=== PATIENT | male | born 1970 | race Caucasian/White ===

== ENCOUNTER → 2019-01-14 | Outpatient (CLI) | payer SELFPAY ==
--- NOTE | 2019-01-14 16:57 | PCVCIMAG ---
APPROVED REPORT Study performed: 01/14/2019 15:02:17 Exam: Stress Echocardiogram Indication: Dyspnea, fam hx cad, hyperlipidemia Patient Location: Echo lab Stress Nurse: Peggy Chavira RN Status: routine Ht: 5 ft 7 in HR: 82 bpm BP: 130/82 mmHg Rhythm: NSR Procedure The patient underwent an Exercise Stress Test using the Kenny Protocol. Blood pressure, heart rate, and EKG were monitored. An Echocardiogram was performed by alternative energy technician in four stages in quad fashion. At peak stress, four selected images were obtained and placed side by side with resting images for comparison. Stress Test Details Stress Test: Exercise stress testing was performed using a Kenny protocol. HR Resting HR: 82 bpmMax Heart Rate (APMHR): 170 bpm Max HR Achieved: 190 bpmTarget HR (85% APMHR): 144 bpm % of APMHR: 111 Recovery HR: 93 bpm HR response to stress: Normal HR response to stress BP Resting BP: 130/82 mmHg Max BP: 168/78 mmHg Recovery BP: 120/76 mmHg BP response to stress: Normal blood pressure response to stress. ECG Resting ECG: Sinus Rhythm Stress ECG: Sinus Rhythm ST Change: Horizontal ST depression Maximum ST Deviation: 2 mm Arrhythmia: None Recovery ECG: Sinus Rhythm Recovery ST Change: Upsloping ST depression Recovery ST Deviation: 1 mm Recovery Arrhythmia: None Clinical Reason for Termination: Maximal effort, Dyspnea Stress Symptoms: Dyspnea Exercise duration: 12 min sec Highest Stage Achieved: Stage 4: 4.2 mph at 16% grade. Exercise capacity: 13.4 METs Overall Exercise Capacity for Age: Average Scale: Active Angina Score: None Stress ECG Conclusion ECG: I Abnormal exercise stress ECG consistent with stress-induced myocardial ischemia. schemic Ordaz Treadmill Score is 2.0 which is Moderate risk. Pre-Stress Echo The resting Echocardiogram showed normal left ventricular contractility with an estimated Ejection Fraction of about >55%. Normal wall motion in all segments on baseline images. Post-Stress Echo The stress Echocardiogram showed normal left ventricular contractility with an estimated Ejection Fraction of about 65%. Normal augmentation of wall motion in all segments on post stress images. Conclusion Clinical Response: Equivocal Exercise Capacity: Above Average Stress ECG Response: Ischemic Stress Echo Images: Non-ischemic The left ventricle is normal in size and wall thickness in both the rest and stress images. Ischemic electrocardiographic findings, consider false positive response. Suggest myocardial perfusion imaging. Other Information Study Quality: Adequate <Conclusion> The left ventricle is normal in size and wall thickness in both the rest and stress images. Ischemic electrocardiographic findings, consider false positive response. Suggest myocardial perfusion imaging.
== END | disposition home or self-care (01) ==
LOC: PCVCIMAG 14:55
PROVIDERS: ATTEND Family Medicine
DX: R06.09 Other forms of dyspnea (principal); R94.39 Abnormal result of other cardiovascular function study; E78.5 Hyperlipidemia, unspecified; Z82.49 Family history of ischemic heart disease and other diseases of the circulatory system
CPT/HCPCS: 93325; 93351

== ENCOUNTER → 2019-01-16 | Outpatient (CLI) | payer SELFPAY ==
--- NOTE | 2019-01-17 07:41 | PCVCIMAG ---
APPROVED REPORT Imaging Protocol: Rest Tc-99m/Stress Tc-99m 1 day Study performed: 01/16/2019 10:00:30 Indication: GALDAMEZ, Abn Stress Echo Patient Location: Out-Patient Stress Nurse: Zenaida Meraz RN, SHARMILA William Tech:Rosendo RamirezMALCOLMB Ht: 5 ft 8 in Wt: 155 lbs BSA: 1.83 m2 HR: 73 bpm BP: 140/72 mmHg BMI: 23.5 Rhythm: Sinus Rhythm Medical History Medical History: Age, Hyperlipidemia, Family Hx of CAD, Smoker Medications: Crestor, Sulfasalazine, Meloxicam, Zyrtec Allergies: No known drug allergies Pretest Chest Pain Characteristics: No chest pain Exercise History: Physically active Resting Data Rest SPECT myocardial perfusion imaging was performed in supine position 45 minutes following the intravenous injection of 9.8 mCi of Tc-99m Sestamibi. Time of rest injection: 0900 Date: 01/16/2019 Administration Route: IV Administration Site: Right Hand Exercise Stress At peak stress, the patient was injected intravenously with 34.4mCi of Tc-99m Sestamibi. Time of stress injection: 1045 Administration Route: IV Administration Site: Right Hand Gated Stress SPECT was performed 45 minutes after stress injection. Stress Test Details Stress Test: Exercise stress testing was performed using a Kenny protocol. HRMax Heart Rate (APMHR): 170 bpm Resting HR: 73 bpmTarget HR (85% APMHR): 144 bpm Max HR Achieved: 184 bpm % of APMHR: 108 Recovery HR: 86 bpm HR response to stress: Normal HR response to stress BP Resting BP: 140/72 mmHg Max BP: 190/96 mmHg Recovery BP: 134/77 mmHg BP response to stress: Normal blood pressure response to stress. ECG Resting ECG: Sinus Rhythm Stress ECG: Sinus Tachycardia, ST Depression ST Change: Horizontal ST depression Maximum ST Deviation: 1.5 mm Arrhythmia: PVC's Recovery ECG: Sinus Rhythm Recovery ST Change: Upsloping ST depression Recovery ST Deviation: 0.5 mm Clinical Reason for Termination: Maximal effort Stress Symptoms: None Exercise duration: 12 min 0 sec Exercise capacity: 13.7 METs Overall Exercise Capacity for Age: Good Scale: Active Angina Score: None Symptoms resolved during recovery. Stress ECG Conclusion Clinical: Non-ischemic ECG: Iischemic Ordaz Treadmill Score is 4.5 which is Moderate risk. Study Quality Study: Good Study Data Post stress, the left ventricular ejection was 70%.. TID = 0.89. Perfusion No evidence of stress induced ischemia or prior myocardial infarction. Wall Motion Normal left ventricular size and function with no regional wall motion abnormalities. Nuclear Conclusion No evidence of stress induced ischemia or prior myocardial infarction. Normal left ventricular size and function with no regional wall motion abnormalities. Post stress, the left ventricular ejection was 70%. No prior study available for comparison. Interpreted by: Abdiel Borges MD Electronically Approved: 01/16/2019 21:26:17 <Conclusion> Clinical: Non-ischemic ECG: Iischemic
== END | disposition home or self-care (01) ==
LOC: PCVCIMAG 09:18
PROVIDERS: ATTEND Family Medicine
DX: R06.09 Other forms of dyspnea (principal); R94.39 Abnormal result of other cardiovascular function study
CPT/HCPCS: 78452; 93017; A9500